=== PATIENT | male | born 1955 | race Caucasian/White ===

== ENCOUNTER 2025-04-28 03:43 | Emergency (ER) | payer OTHER, SELFPAY ==
[2025-04-28] VITALS (12 sets, daily range): BP systolic 139–176; BP diastolic 57–90
--- NOTE | 2025-04-28 06:43 | ED.GENMED ---
History of Present Illness
General
Chief Complaint: Musculo-Skeletal Complaint
Source: patient
Time Seen by Provider: 04/28/25 06:24
History of Present Illness
History of Present Illness:
Note:
CHIEF COMPLAINT(S)
Numbness in the right arm.
HISTORY OF PRESENT ILLNESS
The patient is a 70-year-old male presenting with numbness in the right arm, nose, and leg. The onset was unclear, but symptoms appear to have worsened over time. The patient reported receiving 'a couple of shots in the arm' which seemed to improve
the condition temporarily. He mentioned difficulty holding items with his affected hand.
ADDITIONAL HISTORY OBTAINED FROM SOURCES OTHER THAN THE PATIENT
The patient was reportedly sitting on steps outside [facility] before the police were involved. According to EMS, he was in contact with the police, who assessed his safety and subsequently facilitated his transport to the Emergency Room.
SOCIAL DETERMINANTS AFFECTING HEALTH
The patient has a history of staying at [facility] for short stints and currently lacks stable housing, mentioning staying with various acquaintances. He previously lived in [place] but has since given up that residence.
REVIEW OF SYSTEMS
- Neurological: Reports numbness in the right arm
PHYSICAL EXAM
Nursing notes reviewed and vital signs reviewed.
DIFFERENTIAL DIAGNOSIS
The Differential Diagnosis includes, in no particular order and is not limited to:
1. Transient ischemic attack althought symptoms are chronic
2
3. Peripheral neuropathy
4.
Phy Exam
Physical Exam
Physical Exam:
General: Unkempt male no acute respiratory distress HEENT: Normocephalic mucosa dry neck is supple
Heart: Regular rate and rhythm
Lungs: Clear no wheeze extremities: No cyanosis
Course
Orders/Labs/Results
Orders:
Orders
04/28/25 06:43
Electrocardiogram (*1) Urgent
Reason for Study: Chest Pain
EKG- Treatment ONCE
04/28/25 06:45
Drug Screen, Urine [Urine Drug Abuse Screen] Urgent
04/28/25 06:48
Case Management Consult ONCE
Case Management Consult: Discharge Planning
Alcohol Urgent
Complete Blood Count/With Diff Urgent
Comprehensive Metabolic Panel Urgent
Troponin I Urgent
Abnormal Lab Results
04/28/25
06:48
RBC 3.88 L 10^6/uL
(4.70-6.10)
Hgb 11.6 L g/dL
(13.0-18.0)
Hct 34.4 L %
(39.0-52.0)
Absolute Monos (auto) 0.7 H 10^3/uL
(0.1-0.6)
Monocytes % 10.1 H %
(1.7-9.3)
Chloride 111 H mmol/L
(98-107)
Glucose 110 H mg/dl
(70-99)
04/28/25 06:48
04/28/25 06:48
Vital Signs
Initial and Last Documented VS:
Initial Vital Signs
Temp Pulse Resp BP Pulse Ox
97.7 F 67 18 163/78 98
04/28/25 03:46 04/28/25 03:46 04/28/25 03:46 04/28/25 03:46 04/28/25 03:46
Last Documented Vital Signs
Temp Pulse Resp BP Pulse Ox
97.7 F 54 20 152/57 91
04/28/25 03:46 04/28/25 07:02 04/28/25 06:02 04/28/25 10:00 04/28/25 09:53
*Pulse Oximetry
SaO2: 95
Oxygen Mode of Delivery: Room air
Patient hypoxic: no
*Critical Care Note
Total Time (30-74mins, 75-104mins- exclusive of procedures): Not Applicable
Update Note
Update Note:
Medically, the workup here is unremarkable. Seen by case management. Case management spoke with [facility] who have excepted him back as a resident. No indication for admission otherwise
ED Attending Note
-
Portions of this chart may have been created with voice recognition software.� Occasional wrong word or��sound alike� substitutions may have occurred due to the inherent limitations of voice recognition software.
Discharge Plan
Departure
Patient Disposition: Home (Routine Discharge)
Date of Disposition: 04/28/25
Time of Disposition: 13:28
Patient with high blood pressure during this ER visit?: No
Discharge Problem:
Arm pain, chronic
Instructions: Muscle and Bone Pain (DC)
Referrals:
UNKNOWN - PT DOES,NOT KNOW [Family Provider]
Activity Restrictions/Additional Instructions:
Please return if needed.
Interventions
Interventions:
*Risk Screen - Suicide Last Done: 04/28/25 03:46
*General Assessment Last Done: 04/28/25 03:46
*Neglect/Abuse Screening Last Done: 04/28/25 03:46
*ED- Fall Risk Assessment Last Done: 04/28/25 03:46
*ED COVID-19 Vaccine History Last Done: 04/28/25 03:46
ED-Musculoskeletal Assessment Last Done: 04/28/25 04:14
Discharge Date and Time
Print Language: KOREAN
[2025-04-28 06:57] LABS: % Basophils 1.4 % (0-2); % Eosinophils 4.3 % (0-6); % Immature Granulocytes 0.3 % (0-0.5); % Lymphocytes 30.3 % (20.5-51.1); % Monocytes 10.1 % (1.7-9.3); % Neutrophils 53.6 % (42.2-75.2); Absolute Basophils 0.1 10^3/uL (0-0.2); Absolute Eosinophils 0.3 10^3/uL (0-0.7); Absolute Lymphocytes 2.1 10^3/uL (1.2-3.4); Absolute Monocytes 0.7 10^3/uL (0.1-0.6); Absolute Neutrophils 3.7 10^3/uL (1.4-6.5); Hematocrit 34.4 % (39.0-52.0); Hemoglobin 11.6 g/dL (13.0-18.0); Mean Corp Hgb Conc. 33.7 g/dL (33.0-37.0); Mean Corpuscular Hgb 29.9 pg (27.0-31.0); Mean Corpuscular Volume 88.7 fL (80.0-94.0); Mean Platelet Volume 8.7 fL (7.4-10.4); Nucleated Red Blood Cells % 0 % (-); Platelet Count 394 10^3/uL (130-400); Red Blood Cell Count 3.88 10^6/uL (4.70-6.10); Red Cell Dist. Width 13.5 % (11.5-14.5)
[2025-04-28 07:17] LABS: ALT (SGPT) 17 U/L (0-50); AST (SGOT) 18 U/L (17-59); Albumin 4.1 g/dl (3.5-5.0); Alkaline Phosphatase 93 U/L (38-126); Blood Urea Nitrogen 13 mg/dl (9-20); Calcium 9.4 mg/dl (8.4-10.2); Carbon Dioxide 25 mmol/L (22-30); Chloride 111 mmol/L (98-107); Estimated Creatinine Clearance 77 ml/min; Glucose 110 mg/dl (70-99); Potassium 3.8 mmol/L (3.5-5.1); Sodium 140 mmol/L (135-145); Total Bilirubin 0.7 mg/dl (0.2-1.3); Total Protein 6.8 g/dl (6.3-8.2); eGFR > 60.00
[2025-04-28 07:22] LABS: Alcohol None Detected
[2025-04-28 07:27] LABS: Troponin I < 0.012 ng/ml
--- NOTE | 2025-04-28 09:27 | CM ---
Addendum entered by Jaqueline Pham 04/28/25 11:10:
Pt declined [facility], [facility] was interested in pt, [facility] and [facility] declined.
Per Susana at [facility] they will accept him back. Requested 3pm transport. Pt agreeable and was advised to stay and allow [facility] to help him. ED NA Rivera and RN Sheila updated.
Report number [phone]
Fax number [phone]
Original Note:
HODAN reviewed chart and met with pt bedside in ED. Per pt, he was previously at [facility] but left there and went to [place] where he has family. Returned to this area and was brought to ED by police after he was found trying to break in to [place].
HODAN spoke to Susana at [facility], pt had been there STR, Medicaid eric was started and plan had been to transition to LTC but pt signed out AMA twice. Per Susana, pt has family in [place] but son there has a restraining order against him. He does not
have a POA.
Met with pt, he does confirm he was at [facility] and did go to [place]. Pt does not answer questions directly but does say he also has a son in [place] and another adult son he was caring for in this area. He does not have a plan for where he can
live if he does not return to [facility], repeatedly talks about returning to [place].
HODAN spoke to edwin Muhammad for [employer] and also Ning at [facility], referrals sent to [facility], [facility], [facility] and [facility]. Will await response.
== END 2025-04-28 14:47 | disposition home or self-care (01) ==
LOC: EMR 03:43
PROVIDERS: Physician Assistant; EMERGENCY PHYSICIAN Emergency Medicine
DX: G89.29 Other chronic pain (principal); M79.603 Pain in arm, unspecified
CPT/HCPCS: 99283; 80053; 82077; 84484; 85025; 93005